=== PATIENT | female | born 2000 | race Caucasian/White ===

== ENCOUNTER → 2022-04-03 14:15 | Outpatient (CLI) | payer BC, SELFPAY ==
--- NOTE | ~2022-04-03 | US_ITS ---
EXAMINATION: US transvaginal DATE: 04/03/2022 14:41 INDICATION: Pelvic pain. TECHNIQUE: Multiple transvaginal sonographic images of the pelvis were obtained. COMPARISON: None. FINDINGS: The uterus measures 6.2 x 3.4 x 3.9 cm. There is no free fluid in the pelvis. The endometrial complex measures 3 mm in thickness. There is a 1.3 cm intramural fibroid. The right ovary measures 3.0 x 2.7 x 2.2 cm. The left ovary measures 2.5 x 2.4 x 1.7 cm. There is normal vascular flow in the ovaries. IMPRESSION: 1. Uterine fibroid. Reviewed, dictated and finalized at location A. E STREAM MANAGER IMPRESSION: 1. Uterine fibroid.
== END ==
PROVIDERS: PCP Nurse Practitioner; Visit Provider Nurse Practitioner
DX: R10.2 Pelvic and perineal pain (principal); D25.9 Leiomyoma of uterus, unspecified
CPT/HCPCS: 76830

== ENCOUNTER 2022-04-28 10:10 | Outpatient (CLI) | payer BC, SELFPAY ==
--- NOTE | ~2022-04-28 | US_ITS ---
US abdomen limited INDICATION: Right upper quadrant abdominal pain. PROCEDURE: Realtime right upper abdominal ultrasound. COMPARISON: No prior studies for comparison. FINDINGS: The pancreas is normal without focal mass or pancreatic ductal dilation. Liver echotexture is normal without focal mass or intrahepatic biliary dilatation. There is normal directional flow i n the portal vein. The gallbladder is normal without stones, gallbladder wall thickening or pericholecystic fluid. Comm on bile duct measures 4 mm. No sonographic Rodríguez's sign. IMPRESSION: 1: Normal limited abdominal ultrasound. Reviewed, dictated and finalized at location A. E BALANCER
== END 2022-04-28 10:11 | disposition home or self-care (01) ==
PROVIDERS: PCP Family Medicine; Visit Provider Family Medicine
DX: R10.11 Right upper quadrant pain (principal)
CPT/HCPCS: 76705

== ENCOUNTER 2022-06-08 09:06 | Outpatient (CLI) | payer BC, SELFPAY ==
--- NOTE | ~2022-06-08 | NM_ITS ---
EXAMINATION: NM hepatobiliary wo pharm DATE: 06/08/2022 11:50 INDICATION: Right upper quadrant abdominal pain. COMPARISON: Ultrasound 04/28/2022 TECHNIQUE: 4.8 mCi Tc-99m mebrofenin (Choletec) was administered intravenously. Scintigraphic images of the abdomen were obtained for one hour. Then, the patient drank 8 oz Ensure, and imaging was cont inued for 60 minutes. FINDINGS: There is normal clearance of radiotracer from the blood pool. There is homogeneous tracer u ptake by the liver. Activity progresses to the bowel and gallbladder. Gallbladder ejection fraction (GBEF) was 47%. Note that with this technique, normal GBEF >= 33%. IMPRESSION: 1. Normal hepatobiliary scintigraphy. Reviewed, dictated and finalized at location A.
== END 2022-06-08 09:07 | disposition home or self-care (01) ==
PROVIDERS: PCP Family Medicine; Visit Provider Physician Assistant
DX: R10.11 Right upper quadrant pain (principal)
CPT/HCPCS: 78226; A9537

== ENCOUNTER → 2023-04-12 14:44 | Outpatient (CLI) | payer BC, SELFPAY ==
--- NOTE | ~2023-04-12 | US_ITS ---
US breast BI limited INDICATION: Palpable breast lumps TECHNIQUE: Dedicated Limited bilateral breast ultrasound COMPARISON: No prior studies for comparison. FINDINGS: The breasts are composed of normal heterogeneous echotexture without focal solid or cystic mass. IMPRESSION: 1: Normal limited bilateral breast ultrasound. BI-RADS CATEGORY 1 - NEGATIVE Reviewed, dictated and finalized at location A. ING SUPERINTENDENT
== END ==
PROVIDERS: PCP Nurse Practitioner; Visit Provider Nurse Practitioner
DX: N63.20 Unspecified lump in the left breast, unspecified quadrant (principal); N63.10 Unspecified lump in the right breast, unspecified quadrant
CPT/HCPCS: 76642

== ENCOUNTER 2024-11-19 20:09 | Emergency (ER) | payer BC, SELFPAY ==
--- OUTSIDE RECORDS SUMMARY | 2013-11-03 10:39 | XMS_ITS | Continuity of Care Document ---
Author Organization [facility] Address [address] [place] [address] [address] [place] [address] Phone Care Team Providers Care Garland Maker Name Role Phone Ki NANCE, OTR/LChristina Unavailable Unavail able Procedures Procedure Date THERAPEUTIC EXERCISES NEUROMUSCULAR RE-ED MANUAL THERAPY FUNC ACTIVITY 15 MIN HOT/COLD PACK THERAPEUTIC EXERCISES NEUROMUSCULAR RE-ED MANUAL THERAPY FUNC ACTIVITY 15 MIN HOT/COLD PACK THERAPEUTIC EXERCISES MANUAL THERAPY FUNC ACTIVITY 15 MIN HOT/COLD PACK THERAPEUTIC EXERCISES MANUAL THERAPY FUNC ACTIVITY 15 MIN HOT/COLD PACK OT EVALUATION THERAPEUTIC EXERCISES MANUAL THERAPY HOT/COLD PACK Advance Directives Directive Yes / No Effective Date File Name No Information Encounters Encounter Description Practice Location Reason(s) For Visit Diagnoses Date Provider Providers Copied on Encounter [facility], [address], [place], [place], [id number], tel:[phone] [place] No Information Ki Vasquez. [address] [place] [address], [address], [place], [place], [facility], . tel:[phone] Referring Provider: Oj Mena, [address], [place], [address]. tel:[phone] [place] [address] [address], [place], [place], [address], tel:[phone] [place] No Information Ki Vasquez. [address] [place] [address], [address], [place], [place], [facility], . tel:[phone] Referring Provider: Oj Mena, [address], [place], [place], [facility]. tel:[phone] [place] [address] [address] [facility] [address], [place], [place], [address], tel:[phone] [place] No Information Ki Vasquez. [address] [place] [address], [address], [place], [place], [facility], . tel:[phone] Referring Provider: Oj Mena, [address], [place], [address]. tel:[phone] [place] [address], [place], [place], [address], tel:[phone] [place] No Information Ki Vasquez. [address] [place] [address], [address], [place], [facility], . tel:[phone] Referring Provider: Oj Mena, [address], [place], [address]. tel:[phone] [place] [address] [facility] [address], [place], [place], [address], tel:[phone] [place] No Information Ki Vasquez. [address] [facility], [address], [place], [address], [place]. tel:[phone] Referring Provider: Precious [address], [place], [address]. tel:[phone] [facility] [place], [address] [place] [address] [address], [place], [id number], [place] tel:[phone] [place] Pain in joint involving hand Ki Vasquez. [address] [facility], [address], [place], [address], [place]. tel:[phone] Referring Provider: Deep[address], [place], [address]. tel:[phone] Family History Family Member Type Diagnosis Age At Onset No Information Payers Payer name Insurance type Covered alliance party ID Rex latif(s) [employer] CI [id number] Social History Type Description Quantity Date Captured Comments Sex Female Smoking Status No Information Chief Complaint And Reason For Visit No Information Reason For Referral Reason For Referral No Information History Of Present Illness Encounter Date Complaint History Of Prese nt Illness No Information Functional Status Date Functional Assessmen t No Information Instructions Date Instruction Additional Infor mation No Information Assessments Type Assessment Date No Information Patient Care Teams Name Effective Dates (start - stop) Status Members No Information
--- NOTE | ~2024-11-19 | CT_ITS ---
EXAMINATION: CT facial bones wo con COMPARISON: None HISTORY: dental pain,?drainage; R epistaxis;wisdom teeth TECHNIQUE: Axial images were obtained without IV contrast. Sagittal, coronal reconstruction images were obtained from the axial views. CT scan performed using dose optimization techniques including the following automated exposure control; adjustment of mA and/or kV; use of iterative reconstruction technique. Automatic exposure control was used to reduce radiation dose. Permanent radiation dose record is archived to PACS. FINDINGS: Nasal bone is intact. Anterior maxillary sinus [place] and zygomatic arches are intact. Temporomandibular joints are intact. Orbital floors and medial and orbits are intact. No significant sinusitis. No retrobulbar hemorrhage or preseptal soft tissue swelling. The visualized brain parenchyma appears unre markable. IMPRESSION: No acute fracture. No acute process. Reviewed, dictated and finalized at location A.
--- OUTSIDE RECORDS SUMMARY | 2024-11-19 20:12 | XMS_ITS | Patient Health Record ---
Author Organization [facility] erma Address [address] [facility] [facility] [address] [place] [address] Support Name Relationship Address Phone Apryl Gu Guarantor Unknown [phone] Allergies No Known Allergies Reason For Referral No Information Problems Problem Type SNOMED Code ICD Code Onset Dates Problem Status W/U Status Risk Notes Problem Atopic dermatitis (03209095) Atopic dermatitis, unspecified (L20.9) Active confirmed Problem Acne (26539541) Acne, unspecified (L70.9) 1 Active confirmed Plan Of Treatment No Information Insurance Providers Payer Name Payer Address Payer Phone Subscriber Number Group Number Insured Name Patient Relationship to Insured Coverage Start Date Coverage End Date DO NOT USE [id number] Margarito Gu 5 [employer] link [address] [place], [place] [id number] Margarito Gu 3 DO NOT USE [place] [id number] Margarito Gu 1 DO NOT USE [id number] 1 Apryl Gu Self - patient is the insured 2
--- OUTSIDE RECORDS SUMMARY | 2024-11-19 20:12 | XMS_ITS | Encounter Summary ---
Author Organization [facility] Address [address] [place] [address] Care Team Providers Care Inspector Shells Name Role Phone Garrett Ding MD Unavailable Enmanuel Calle MD Unavailable [phone] Marely Rios MD Unavailable [phone] Andria Hall MD Unavailable María LucasD Unavailable Unavaila Maggie Abreu RN Unavailable Unavailable Chanda Woodson Unavailable Unavailable Charlotte Anglin SULPHATE TESTER-HOSPITAL SUPERVISOR Unavailable [phone] Tanna Aldridge SULPHATE TESTER-HOSPITAL SUPERVISOR Unavailable [phone] Roro Arreola RN Unavailable Unavailable Kaila Romeo RN Unavailable Unavailable Darlin Weinberg WHEEL PRESSER Unavailable Unavailable Jana Parada RN Unavailable Unavailable Yanelis Menchaca Unavailable Sara Jayne Mcfadden MD Primary Care Provider [phone] Weston Mccullough RN Unavailable Unavailable Encounter Details Date Type Department Care Team (Late st Contact Info) Description 06/16/2023 Lab Requisition [facility] [address] [place] [address] Enmanuel Calle MD [address] [facility] [place] [address] Illness, unspecified Social History Tobacco Use Types Packs/Day Years Used Date Smoking Tobacco: Never Smokeless Tobacco: Never Alcohol Use Standard Drinks/Week Comments Never 0 (1 standard drink = 0.6 oz pur e alcohol) Comments Unknown Sex and Gender Information Value Date Recorded Sex Assigned at Not on file Legal Sex Female 9:01 AM CDT Gender Identity Female 06/14/2023 11:23 AM CDT Sexual Orientation Straight 06/14/2023 11 :23 AM CDT 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 on file Not on file Not on file documented as of this encounter Plan of Treatment Upcoming Encounters Date Type Department Care Team (Late st Contact Info) Description 12/18/2024 10:00 AM CDT Appointment [facility] [address] [place] [address] Tanna Aldridge, SULPHATE TESTER-HOSPITAL SUPERVISOR [address] [place] [address] 03/26/2025 1:00 PM CONTAINERS SALES REPRESENTATIVE Appointment [facility] [address] [place] [phone] documented as of this encounter Procedures Procedure Name Priority Date/Time Associated Diagnosis Comments PATH CONSULT ON REFERRED CASE Routine 06/16/2023 3:41 PM CDT Illness, unspecified documented in this encounter Results * PATH CONSULT ON REFERRED CASE (06/16/2023 3:41 PM CDT) Final Diagnosis Bone marrow, iliac crest, core biopsy, clot section, and aspirate (OSC: [id number]; 06/02/2023): - Markedly hypocellular bone marrow (5% cellular) with trilineage hypoplasia, markedly increased T-cells, and PNH clones identified by flow cytometry (see comment) - Focal iron stores identified 06/16/2023 5:[address] [facility] at 1731 CDT Microscopic Description and Comment Peripheral blood: The CBC provided with the bone marrow report shows a white count of 1400/mcL, hemoglobin 10.4 g/dL, hematocrit 30.6%, MCV 97.8 fL, and a platelet count of 12,000/mcL. The white cell differential shows 56% neutrophils, 40% lymphocytes, 3% monocytes, and 1% monocytes. One nucleated red blood cell is identified per 100 white cells. The absolute neutrophil count is 780/mcL. A peripheral blood smear is not submitted for review. Bone marrow aspirate and core biopsy touch imprints: One bone marrow touch imprint slide contains a small, hypocellular spicule. A 200-cell count differential shows the followin% myeloblasts, 29% more mature myeloid lineage cells, 2% erythroid precursors, 58.5% lymphocytes, 6.5% plasma cells, 0.5% eosinophils, and 2.5% monocytes. Mast cells are mildly increased in number. A significant number of megakaryocytes are not noted. The myeloid lineage is mature without significant dyspoiesis. The erythroid lineage is not present insufficient quantity to adequately assess morphology. The bone marrow aspirate smears are devoid of cellular spicules. Iron stains of the bone marrow aspirate smear are negative but noncontributory due to lack of cellular spicules. Ring sideroblasts are not identified. Bone marrow core biopsy: The core biopsy is adequate for interpretation but shows marked aspiration artifact. The marrow is markedly hypocellular for the patient's age at approximately 5% cellular. The bone marrow cellularity consists primarily of lymphocytes and plasma cells with very rare myeloid and erythroid precursors noted. Scattered mast cells are seen but abnormal mast cell collections are not noted. An exceedingly rare megakaryocyte is identified. Significant lymphoid aggregates, granulomata, or extrinsic tumor cells are not identified. Serous fat atrophy is not appreciated. The clot section contains small cellular spicules which do show erythropoiesis. Immunohistochemical stains with reactive controls are provided for review. CD34, a marker of blasts, highlights fewer than 1% of all cells. CD20, a B-cell marker, highlights approximately 1% of all cells without abnormal clustering noted. CD3, a T-cell marker, highlights at least 70% of total cells. An iron stain of the clot section reveals punctate storage iron. 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 06/16/2023 5:31 PM [facility] Materials Received Received are 28 slide(s) and 1 block labeled [id number] along with a copy of the outside pathology report. The materials originate from [facility], [address] [place] [address]. All original materials are returned to the referring institution, along with a copy of our final report. 06/16/2023 5:31 PM [facility] AP Comment Flow cytometry of th e bone marrow reportedly shows no evidence of a hematolymphoid neoplasm. PNH flow cytometry of the peripheral blood reveals PNH clones in the neutrophils, monocytes, and a minor clone detected in the red cells. Aplastic anemia is favored over paroxysmal nocturnal hemoglobinuria (PNH) as PNH should show erythroid hyperplasia in the marrow. The differential diagnosis includes hypoplastic myelodysplastic neoplasm (myelodysplastic neoplasm with low blasts). Aplastic anemia should not have reticulin fibrosis of the marrow whereas hypoplastic MDS will frequently show some degree of reticulin fibrosis. A reticulin stain was not included for review, and a reticulin stain is not reported in the documentation from the referring institution. Assessing the patient's reticulin status may help differentiate between aplastic anemia and a myelodysplastic neoplasm. 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 Information was not provided by the referring institution with regards to cytogenetic, FISH, or molecular analysis. Correlation with genetic/molecular data is necessary to exclude a myelodysplastic neoplasm or other bone marrow failure syndromes. Overall, the clinical history, morphologic features of the bone marrow, presence of a PNH clone by flow cytometry, increased T-cells in the marrow, and pancytopenia favor aplastic anemia. If clinically suspicious for a T-cell lymphoproliferative disorder, consider T-cell receptor gene rearrangement analysis. 06/16/2023 5:31 PM [facility] Pathologist Location at [facility] [address] 06/16/2023 5:31 PM [facility] Disclaimer The performance characteristics of all immunohistochemical and indirect immunofluorescence stains (if any) cited in this report were determined by the Histopathology Laboratory of [facility]. Some of these tests were developed by our own laboratory and have not been cleared or approved by the US Food and Drug Administration. The FDA does not require this test to go through premarket FDA review. These tests are used for clinical purposes. They should not be regarded as investigational or for research. This laboratory is certified under the Clinical Laboratory Improvement Amendments (CLIA) as qualified to perform high complexity clinical laboratory testing. This case has been personally reviewed and interpreted by the attending (teaching) pathologist. 06/16/2023 5:[address] [facility] Case Report Surgical Pathology Report Case: [id number] Authorizing Provider: Enmanuel Calle MD Collected: 06/16/2023 03:41 PM Ordering Location: [facility] - Received: 06/16/2023 03:42 PM Pathology Lab Pathologist: Olga Lidia Valdez MD Specimen: Slide Consultation 06/16/2023 5:[address] [facility] Embedded Images 06/16/2023 5:[address] [facility] Pathology/Cytolo gy SURGICAL PATHOLOGY CONSULTATION AND REPORT ON REFERRED SLIDES PREPARED ELSEWHERE / Unknown 06/16/2023 3:41 PM CDT 06/16/2023 3:42 PM CDT Enmanuel Calle MD LAB - PATHOLOGY/CYTOLOGY ORD ERABLES Final Result [facility] [address] [phone] documented in this encounter Visit Diagnoses Diagnosis Illness, unspecified documented in this encounter Additional Health Concerns Infection Onset Date Last Indicated Resolved Time CDIFF Under Investigation 08/11/2023 08/11/2023 8:52 PM CDT COVID-19 Under Investigation 04/28/2024 04/28/2024 04/28/2024 3:50 PM CONTAINERS SALES REPRESENTATIVE COVID-19 Under Investigation 06/03/2024 06/03/2024 06/03/2024 1:41 PM CDT documented as of this encounter Care Teams Inspector Shells Relationship Specialty Start Date End Date Jayne Belle MD [address] [phone] PCP - General Family Medicine 06/10/23 Garrett Ding MD [address] [place] [address] Hematology and Oncology 06/07/23 Enmanuel Calle MD [address] [place] [address] Manager Semiconductor/Oncologist Hematology and Oncology 06/07/23 Marely Rios MD [address] [place] [address] Hematology and Oncology 06/07/23 Andria Hall MD [address] [place] [phone] Physician Hematology and Oncology 06/07/23 María Lucas, PharmD 06/07/23 Maggie Porter, RN 06/07/23 WoodsonChanda thomas 06/07/23 Charlotte Anglin APRN-HOSPITAL SUPERVISOR [address] [place] [phone] Nurse Practitioner Nurse Practitioner 06/07/23 Tanna Aldridge APRN-HOSPITAL SUPERVISOR [address] [place] [phone] Nurse Practitioner Nurse Practitioner 06/07/23 Roro Arreola, RN Registered Nurse 06/07/23 10/03/23 Kaila Romeo, RN Coordinator 06/07/23 Darlin Weinberg, CECIL Dye Weigher Helper 06/07/23 Jana Parada, RN Registered Nurse 06/07/23 Yanelis Menchaca 06/07/23 Weston Mccullough, RN Coordinator 10/04/23 documented as of this encounter
--- OUTSIDE RECORDS SUMMARY | 2024-11-19 20:12 | XMS_ITS | Clinical Summary ---
Author Organization [facility] Address [address] [place] [address] Phone Care Team Providers Care Clinical Nurse Occupational Medicine Name Role Phone Chris Maza MD Primary Care Provider Allergies Active Allergy Reactions Criticality Noted Date Comments Latex Rash 06/08/2023 Peanut-Containing Drug Products Other (see Comments) 06/08/2023 Tacrolimus Other (see Comments) 06/08/2023 Medications Norelgestromin- Eth Estradiol (Xulane) 150-35 MCG/24HR PATCH WEEKLY 1 Patch by Transdermal route. 0 Active Active Problems No known active problems Family History Medical History Relation Name Comments Hypertension Father Stroke Mother Diabetes Sister Relation Name Status Comments Brother Alive Father Alive Mother Sister Alive Social History Tobacco Use Types Packs/Day Years Used Date Smoking Tobacco: Never Smokeless Tobacco: Never Alcohol Use Standard Drinks/Week Comments Not Currently 0 (1 standard drink = 0.6 oz pur e alcohol) Sexually Active Control Partners Comments Yes Comments Unknown Sex and Gender Information Value Date Recorded Sex Assigned at Not on file Legal Sex Female 10:13 AM CDT Gender Identity Not on file Sexual Orientation Not on file Last Filed Vital Signs Vital Sign Reading Time Taken Comments Blood Pressure 104/70 06/08/2023 1:34 PM CDT Pulse 61 06/08/2023 1:34 PM CDT Temperature 36.8 C (98.2 F) 06/08/2023 1:34 PM CDT Respiratory Rate - - Oxygen Saturation 99% 06/08/2023 1:34 PM CDT Inhaled Oxygen Concentration - - Weight 55.1 kg (121 lb 6.4 oz) 06/08/2023 1:34 P M CDT Height 160 cm (5' 3) 06/08/2023 1:34 PM CDT Body Mass Index 21.51 06/08/2023 1:34 PM CDT Plan of Treatment Health Maintenance Due Date Last Done Comments Hepatitis C Virus (HCV) Screening 1998 TdaP Immunization 1998 Human Papillomavirus (HPV) Immunization (1 - 3-dose series) 2013 Hepatitis B Immunization (1 of 3 - 19+ 3-dose series) 2017 Pap Smear 06/13/2019 Influenza Immunization (#1) 2024 SARS-COV-2 Immunization ( season) 2024 02/01/2021, 06/18/2020, 05/28/2020 Respiratory Syncytial Virus (RSV) Immunization (Adult) (1 - 1-dose 75+ series) 2073 Meningococcal Immunization (ACWY) Completed 08/25/2015 Pneumococcal Immunization Combined Aged Out No longer eligible b ased on patient's age to complete this topic Rotavirus Immunization Aged Out No lo nger eligible based on patient's age to complete this topic Insurance From [employer] [facility] Care Teams Clinical Nurse Occupational Medicine Relationship Specialty Start Date End Date Chris Maza MD [address] [place] [address] PCP - General Family Medicine 06/01/23
--- OUTSIDE RECORDS SUMMARY | 2024-11-19 20:12 | XMS_ITS | Encounter Summary ---
Author Organization [facility] Address [address] [place] [address] Care Team Providers Care Budder Name Role Phone Garrett Ding MD Unavailable Enmanuel Calle MD Unavailable [phone] Marely Rios MD Unavailable [phone] Andria Hall MD Unavailable María LucasD Unavailable Unavaila Maggie Abreu RN Unavailable Unavailable Chanda Woodson Unavailable Unavailable Charlotte Anglin PATIENT SUPPORT REPRESENTATIVE-CORN POPPER Unavailable [phone] Tanna Aldridge PATIENT SUPPORT REPRESENTATIVE-CORN POPPER Unavailable Kaila Romeo RN Unavailable Unavailable Darlin Weinberg INDUSTRIAL ECOLOGIST Unavailable Unavailable Jana Parada RN Unavailable Unavailable Yanelis Menchaca Unavailable Sara Jayne Mcfadden MD Primary Care Provider [phone] Weston Mccullough RN Unavailable Unavailable Encounter Details Date Type Department Care Team (Late st Contact Info) Description 09/18/2024 Results Follow-Up [facility] [address] [place] [address] Tanna Aldridge APRN-CORN POPPER [address] [place] [address] Social History Tobacco Use Types Packs/Day Years Used Date Smoking Tobacco: Never Smokeless Tobacco: Never Alcohol Use Standard Drinks/Week Comments Never 0 (1 standard drink = 0.6 oz pur e alcohol) AUDIT-C Answer Date Recorded Q1: How often do you have a drink containing alcohol? Never 12/27/2023 Q2: How many drinks containi ng alcohol do you have on a typical day when you are drinking? Patient does not drink Q3: How often do you have si x or more drinks on one occasion? Never 12/27/2023 Overall Financial Resource Strain (CARDIA) Answe r Date Recorded How hard is it for you to pa y for the very basics like food, housing, medical care, and heating? Not hard at all 07/26/2023 PHQ-2 Answer Date Recorded Patient Health Questionnaire-2 Score 0 09/07/2024 [facility] of Occupat ional Health - Occupational Stress Questionnaire Answer Date Recorded Do you feel stress - tense, restless, nervous, or anxious, or unable to sleep at night because your mind is troubled all the time - these days? Not at all 07/26/2023 Hunger Vital Sign Answer Date Recorded Within the past 12 months, y ou worried that your food would run out before you got the money to buy more. Never true 07/26/19 24 Within the past 12 months, t he food you bought just didn't last and you didn't have money to get more. Never true 07/26/2023 PRAPARE - Transportation Answer Date Re corded In the past 12 months, has l ack of transportation kept you from medical appointments or from getting medications? No 07/13 In the past 12 months, has l ack of transportation kept you from meetings, work, or from getting things needed for daily living? No 07/26/2023 Housing Stability Vital Sign Answer Vlad e Recorded In the last 12 months, was t here a time when you were not able to pay the mortgage or rent on time? No 07/26/2023 In the last 12 months, how many places have you lived? 1 07/26/2023 In the last 12 months, was t here a time when you did not have a steady place to sleep or slept in a nursing home (including now)? 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 Answer Date of Assessment Author No 07/26/2023 5:52 PM CDT Minesh Lee RN * Is person blind or have serious difficulty seeing? Answer Date of Assessment Author No 07/26/2023 5:52 PM CDT Minesh Lee RN * Does person have serious difficulty walking/climbing stairs? Answer Date of Assessment Author No 07/26/2023 5:52 PM ZEET Minesh Lee RN * Does person have difficulty dressing/bathing? Answer Date of Assessment Author No 07/26/2023 5:52 PM ZEET Minesh Lee RN * Does person have difficulty doing errands alone? Answer Date of Assessment Author No 07/26/2023 5:52 PM CDT Minesh Lee RN documented as of this encounter Mental Status * Does person have difficulty concentrating/remembering/making decisions? Answer Entry Date Author No 07/26/2023 5:52 PM Minesh Umana RN documented in this encounter Plan of Treatment Upcoming Encounters Date Type Department Care Team (Late st Contact Info) Description 12/18/2024 10:00 AM CDT Appointment [facility] [address] [place] [address] Tanna Aldridge, DEBBI-CORN POPPER [address] [place] [phone] 03/26/2025 1:00 PM NIBBLER OPERATOR Appointment [facility] PFT [address] [place] [phone] documented as of this encounter Visit Diagnoses Not on filedocumented in this encounter Care Teams Budder Relationship Specialty Start Date End Date Jayne Belle MD [address] [phone] PCP - General Family Medicine 06/10/23 Garrett Ding MD [address] [place] [address] Hematology and Oncology 06/07/23 Enmanuel Calle MD [address] [place] [address] Healthcare Corporate Account Director/Oncologist Hematology and Oncology 06/07/23 Marely Rios MD [address] [place] [address] Hematology and Oncology 06/07/23 Andria Hall MD [address] [place] [phone] Physician Hematology and Oncology 06/07/23 María Lucas, PharmD 06/07/23 Maggie Porter, RN 06/07/23 [facility] Charlotte Anglin APRN-CNP [address] [place] [phone] Nurse Practitioner Nurse Practitioner 06/07/23 Tanna Aldridge APRN-CNP [address] [place] [address] Nurse Practitioner Nurse Practitioner 06/07/23 Kaila Romeo, RN Coordinator 06/07/23 Darlin Weinberg, CECIL Datawarehouse Developer 06/07/23 Jana Parada, RN Registered Nurse 06/07/23 Yanelis Menchaca 06/07/23 Weston Mccullough, RN Coordinator 10/04/23 documented as of this encounter
--- OUTSIDE RECORDS SUMMARY | 2024-11-19 20:12 | XMS_ITS | Clinical Summary ---
Author Organization [facility] Address [facility] [place] [address] Care Team Providers Care Manager Licensing Name Role Phone Lasha Orozco MD Unavailable Chris Maza MD Primary Care Provider [phone] Allergies No known active allergies Medications norelgestromin-ethi nyl estradiol (XULANE) 150-35 MCG/24HR packet Place 1 patch onto the skin once a week. On Tuesdays 0 Active ondansetron (ZOFRAN-ODT) 4 MG disintegrating tablet Take 1 tablet (4 mg total) by mouth every 8 (eight) hours as needed. 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 08/17/2008 Immunizations Immunization Administration Dates Next Due PFIZER COVID-19 (ORIGINAL FO RMULATION, PURPLE CAP) mRNA, LNP-S, PF, 30 MCG/0.3 ML DOSE 06/18/2020,05/28/2020 Family History Medical History Relation Comments Stroke Mother Relation Status Comments Brother Alive Father Alive Mother Alive Sister Alive Social History Tobacco Use Types Packs/Day Years Used Date Smoking Tobacco: Never Smokeless Tobacco: Never Tobacco Cessation:Counseling Given: Not Answered Alcohol Use Standard Drinks/Week Comments No 0 (1 standard drink = 0.6 oz pur e alcohol) A[facility] Utilities Answer Date Recorded In the past 12 months has th e [employer], gas, oil, or water eBrevia threatened to shut off services in your home? No 05/31/2023 Humiliation, Afraid, Rape, and Kick questionnair e Answer Date Recorded Within the last year, have y ou been afraid of your partner or ex-partner? No 05/31/2023 Within the last year, have y ou been humiliated or emotionally abused in other ways by your partner or ex-partner? No Within the last year, have y ou been kicked, hit, slapped, or otherwise physically hurt by your partner or ex-partner? No 05/31/2023 Within the last year, have y ou been raped or forced to have any kind of sexual activity by your partner or ex-partner? No 05/31/2023 AUDIT-C Answer Date Recorded Frequency of Alcohol Consumption Never 09/19/2018 Average Number of Drinks Not on file 019 Frequency of Binge Drinking Not on file 10/2018 Overall Financial Resource Strain (CARDIA) Answe r Date Recorded How hard is it for you to pa y for the very basics like food, housing, medical care, and heating? Not hard at all 05/31/2023 Hunger Vital Sign Answer Date Recorded Within the past 12 months, y ou worried that your food would run out before you got the money to buy more. Never true 05/31/19 24 Within the past 12 months, t he food you bought just didn't last and you didn't have money to get more. Never true 05/31/2023 PRAPARE - Transportation Answer Date Re corded In the past 12 months, has l ack of transportation kept you from medical appointments or from getting medications? No 05/13 In the past 12 months, has l ack of transportation kept you from meetings, work, or from getting things needed for daily living? No 05/31/2023 Housing Stability Vital Sign Answer Vlad e Recorded In the last 12 months, was t here a time when you were not able to pay the mortgage or rent on time? No 05/31/2023 In the last 12 months, how many places have you lived? 1 05/31/2023 In the last 12 months, was t here a time when you did not have a steady place to sleep or slept in a group home (including now)? No 05/31/2023 Comments No Sex and Gender Information Value Date Recorded Sex Assigned at Not on file Legal Sex Female 6:19 PM CDT Gender Identity Female 11/24/2021 10:40 AM CDT Sexual Orientation Straight 11/24/2021 10 :40 AM CDT Last Filed Vital Signs Vital Sign Reading Time Taken Comments Blood Pressure 119/73 06/04/2023 7:30 AM CDT Pulse 62 06/03/2023 5:08 AM CDT Temperature 36.6 C (97.8 F) 06/04/2023 4:48 AM CDT Respiratory Rate 18 06/04/2023 4:48 AM CDT Oxygen Saturation 99% 06/04/2023 7:30 AM CDT Inhaled Oxygen Concentration - - Weight 61.2 kg (134 lb 14.7 oz) 06/04/2023 4:48 AM CDT Height 160 cm (5' 3) 05/31/2023 3:45 PM CDT Body Mass Index 23.9 05/31/2023 3:45 PM CDT Plan of Treatment Health Maintenance Due Date Last Done Comments Cervical Cancer Screening Pa p Smear (Age 21 to 29) Every 3 Years 1998 Cervical Cancer Screening 1998 Annual Physical 2001 HPV Vaccines (1 - 3-dose series) 2013 Hepatitis C 2016 DTaP, Tdap and Td Vaccines ( 1 - Tdap) 2017 Hepatitis B Vaccines (1 of 3 - 19+ 3-dose series) 2017 COVID-19 Vaccine (3 - 2024-2 6 season) 2024 06/18/2020, 05/28/2020 Meningococcal Vaccine Completed 08/25/2015 Meningococcal B Vaccine Aged Out No l onger eligible based on patient's age to complete this topic Pneumococcal Vaccine: Pediatrics (0 to 5 Years) and At-Risk Patients (6 to 49 Years) Aged Out No longer eligible b ased on patient's age to complete this topic RSV Immunizations Under 20 Months Aged Out No longer eligible b ased on patient's age to complete this topic Insurance [facility] Advance Directives * Full Code (Latest Code Status on File) Date Activated Date Inactivated Comments 05/31/2023 5:15 PM 06/04/2023 5:10 PM Care Teams Manager Licensing Relationship Specialty Start Date End Date Chris Maza MD [address] [facility] [address] [place] [address] PCP - General FAMILY PRACTICE 06/01/22 Lasha Orozco MD [address] [address] [employer] INTERVENTIONAL CARDIOLOGY 09/16/18
--- OUTSIDE RECORDS SUMMARY | 2024-11-19 20:12 | XMS_ITS | Encounter Summary ---
Author Organization [facility] Address [address] [place] [address] Care Team Providers Care Marketing Performance Analyst Name Role Phone Garrett Ding MD Unavailable Enmanuel Calle MD Unavailable [phone] Marely Rios MD Unavailable [phone] Andria Hall MD Unavailable María LucasD Unavailable Unavaila Maggie Abreu RN Unavailable Unavailable Chanda Woodson Unavailable Unavailable Charlotte Anglin BACTERIOLOGIST FISHERY-SHUTTLE FITTING SUPERVISOR Unavailable [phone] Tanna Aldridge BACTERIOLOGIST FISHERY-SHUTTLE FITTING SUPERVISOR Unavailable [phone] Kaila Romeo RN Unavailable Unavailable Darlin Weinberg LABEL PRINTER Unavailable Unavailable Jana Parada RN Unavailable Unavailable Yanelis Menchaca Unavailable Sara Jayne Mcfadden MD Primary Care Provider [phone] Weston Mccullough RN Unavailable Unavailable Encounter Details Date Type Department Care Team (Late st Contact Info) Description 10/17/2024 Results Follow-Up [facility] B[facility] CLINIC [address] [place] [address] Tanna Aldridge APRN-SHUTTLE FITTING SUPERVISOR [address] [place] [address] Social History Tobacco Use Types [...] Recorded Patient Health Questionnaire-2 Score 0 09/07/2024 [facility] of Occupat ional Health - Occupational Stress [...] place to sleep or slept in a halfway (including now)? No 07/26/2023 Comments Unknown Sex [...] Info) Description 12/18/2024 10:00 AM CDT Appointment [facility] [address] [place] [address] Tanna Aldridge, DEBBI-SHUTTLE FITTING SUPERVISOR [address] [place] [phone] 03/26/2025 1:00 PM STAFF PHYSICAL THERAPIST Appointment [facility] PFT [address] [place] [phone] documented as of this encounter Visit Diagnoses Not on filedocumented in this encounter Care Teams Marketing Performance Analyst Relationship Specialty Start Date End Date Jayne Belle MD [address] [phone] PCP - General Family Medicine 06/10/23 Garrett Ding MD [address] [place] [address] Hematology and Oncology 06/07/23 Enmanuel aClle MD [address] [place] [address] Wad Lubricator/Oncologist Hematology and Oncology 06/07/23 Marely Rios MD [address] [place] [address] Hematology and Oncology 06/07/23 Andria Hall MD [address] [place] [phone] Physician Hematology and Oncology 06/07/23 María Lucas, PharmD 06/07/23 Maggie Porter, RN 06/07/23 [facility]23 Charlotte Anglin APRN-CNP [address] [place] [phone] Nurse Practitioner Nurse Practitioner 06/07/23 Tanna Aldridge APRN-CNP [address] [place] [address] Nurse Practitioner Nurse Practitioner 06/07/23 Kaila Romeo, RN Coordinator 06/07/23 Darlin Weinberg, CECIL Ski Base Trimmer 06/07/23 Jana Parada, RN Registered Nurse 06/07/23 Yanelis Menchaca 06/07/23 Weston Mccullough, RN Coordinator 10/04/23 documented as of this encounter
--- OUTSIDE RECORDS SUMMARY | 2024-11-19 20:12 | XMS_ITS | Clinical Summary ---
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 Family history of cardiomyopathy 08/17/2008 Supraventricular tachycardia 08/17/2008 Family History Medical History Relation Name Comments Cardiomyopathy Mother Family histor y of cardiomyopathy - (Added by TW Conv) Relation Name Status Comments Mother Social History Tobacco Use Types Packs/Day Years Used Date Smoking Tobacco: Never Smokeless Tobacco: Never Personal Safety Answer Date Recorded Getting School Help Needed Not on file 04/30 Comments Unknown Sex and Gender Information Value Date Recorded Sex Assigned at Not on file Legal Sex Female 4:07 AM DROP MAN Gender Identity Not on file Sexual Orientation Not on file Obstetrics History Last Filed Vital Signs Vital Sign Reading Time Taken Comments Blood Pressure 123/65 11/26/2018 8:51 AM CDT Pulse 70 11/26/2018 8:51 AM CDT Temperature 36.7 C (98 F) 06/20/2020 12:52 PM CDT Respiratory Rate - - Oxygen Saturation 98% 11/26/2018 8:51 AM CDT Inhaled Oxygen Concentration - - Weight 63.5 kg (140 lb) 06/20/2020 12:52 PM CDT Height 160 cm (5' 3) 06/20/2020 12:52 PM CDT Body Mass Index 24.8 06/20/2020 12:52 PM CDT Plan of Treatment Health Maintenance Due Date Last Done Comments Cervical Cancer Screening 1998 Depression Screening 1998 Hepatitis C Screening 1998 DTaP/Tdap/Td Vaccine (1 - Tdap) 2009 Varicella Vaccines (1 of 2 - 13+ 2-dose series) 06/13/2011 HPV Vaccines (1 - 3-dose series) 2013 Hepatitis B Screening 2016 Regular Well Visit/Exam 18-64 2016 Covid-19 Vaccine (3 - 2023-2 5 season) 2023 06/18/2020, 05/28/2020 Influenza Vaccine (#1) 2024 Pneumococcal vaccine <65 Aged Out No longer eligible based on patient's age to complete this topic Insurance [employer] [place] [employer] [place] Care Teams Laboratory Sampler Relationship Specialty Start Date End Date Solomon Kearney MD [address] [place], [place] [phone] PCP - General 11/26/18
--- OUTSIDE RECORDS SUMMARY | 2024-11-19 20:12 | XMS_ITS | Encounter Summary ---
Author Organization [facility] Address [address] [facility] [place] [address] Care Team Providers Care Patient Day Coordinator Name Role Phone Garrett Ding MD Unavailable Enmanuel Calle MD Unavailable [phone] Marely Rios MD Unavailable [phone] Andria Hall MD Unavailable María LucasD Unavailable Unavaila Maggie Abreu RN Unavailable Unavailable Chanda Woodson Unavailable Unavailable Charlotte Anglin DANCE INSTRUCTOR-TRENCH PIPE LAYER HELPER Unavailable [phone] Tanna Aldridge DANCE INSTRUCTOR-TRENCH PIPE LAYER HELPER Unavailable [phone] Kaila Romeo RN Unavailable Unavailable Darlin Weinberg MOTION PICTURE CAMERA OPERATOR Unavailable Unavailable Jana Parada RN Unavailable Unavailable Yanelis Menchaca Unavailable Sara Jayne Mcfadden MD Primary Care Provider [phone] Weston Mccullough RN Unavailable Unavailable Encounter Details Date Type Department Care Team (Late st Contact Info) Description 10/16/2023 Telephone [facility] CL[facility] [address] [place] [address] Nicole Hammer, ANMOL Social History Tobacco Use Types Packs/Day Years Used Date Smoking Tobacco: Never Smokeless Tobacco: Never Alcohol Use Standard Drinks/Week Comments Never 0 (1 standard drink = 0.6 oz pur e alcohol) AUDIT-C Answer Date Recorded Q1: How often do you have a drink containing alcohol? Never 07/26/2023 Q2: How many drinks containi ng alcohol do you have on a typical day when you are drinking? Patient does not drink Q3: How often do you have si x or more drinks on one occasion? Never 07/26/2023 Overall Financial Resource Strain (CARDIA) Answe r Date Recorded How hard is it for you to pa y for the very basics like food, housing, medical care, and heating? Not hard at all 07/26/2023 [facility] of Occupat ional Health - Occupational Stress [...] place to sleep or slept in a assisted (including now)? No 07/26/2023 Comments Unknown Sex [...] 07/26/2023 5:52 PM ZEET Minesh Lee RN documented as of this encounter Mental Status * Does person have difficulty concentrating/remembering/making decisions? Answer Entry Date Author No 07/26/2023 5:52 PM ZEET Minesh Lee RN documented in this encounter Miscellaneous Notes * Telephone Encounter - Nicole Hammer RN - 10/16/2023 12:09 PM CDT Called Apryl to remind him/her about bone marrow biopsy scheduled for Wednesday at 1100. No answer, left message. I reminded her to have a light breakfast and then nothing to eat or drink until after theprocedure with the exception of pills with sips of water. 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 Informed to call with any questions or concerns. documented in this encounter Plan of Treatment Upcoming Encounters Date Type Department Care Team (Late st Contact Info) Description 12/18/2024 10:00 AM CDT Appointment [facility] [address] [place] [address] Tanna Aldridge, DANCE INSTRUCTOR-TRENCH PIPE LAYER HELPER [address] [place] [phone] 03/26/2025 1:00 PM PHARMACEUTICAL WORKER Appointment [facility] PFT [address] [place] [address] documented as of this encounter Visit Diagnoses Not on filedocumented in this encounter Additional Health Concerns Infection Onset Date Last Indicated Resolved Time COVID-19 Under Investigation 04/28/2024 04/28/2024 04/28/2024 3:50 PM PHARMACEUTICAL WORKER COVID-19 Under Investigation 06/03/2024 06/03/2024 06/03/2024 1:41 PM CDT documented as of this encounter Care Teams Patient Day Coordinator Relationship Specialty Start Date End Date Jayne Belle MD [address] [place] [phone] PCP - General Family Medicine 06/10/23 Garrett Ding MD [address] [place] [address] Hematology and Oncology 06/07/23 Enmanuel Calle MD [facility] [place] [address] Information Systems Auditor/Oncologist Hematology and Oncology 06/07/23 Marely Rios MD [facility] [place] [address] Hematology and Oncology 06/07/23 Andria Hall MD [address] [place] [phone] Physician Hematology and Oncology 06/07/23 María Lucas, PharmD 06/07/23 Maggie Porter, RN 06/07/23 Chanda Woodson 06/07/23 Charlotte Anglin, DANCE INSTRUCTOR-TRENCH PIPE LAYER HELPER [facility] [place] [phone] Nurse Practitioner Nurse Practitioner 06/07/23 Tanna Aldridge APRN-ANKUR [address] [place] [address] Nurse Practitioner Nurse Practitioner 06/07/23 Kaila Romeo, RN Coordinator 06/07/23 Darlin Weinberg MSW Medical Director 06/07/23 Jana Parada, RN Registered Nurse 06/07/23 Yanelis Menchaca 06/07/23 Weston Mccullough, RN Coordinator 10/04/23 documented as of this encounter
[2024-11-19 20:28] VITALS: BP 120/69; PULSE 80; RESP 18; TEMP 36.7; O2SAT 100
[2024-11-19 21:20] VITALS: BP 126/86; PULSE 79; RESP 18; O2SAT 100
[2024-11-19 21:34] LABS: Hematocrit 39.7 % (37.0-47.0); Hemoglobin 13.7 g/dL (12.0-15.0); Immature Granulocyte Percent A 0.3 % (0-0.5); Lymphocytes Absolute Auto 1.55 K/mm3 (0.9-3.2); Mean Corpuscular HGB Conc 34.5 g/dl (32-36); Mean Corpuscular Hemoglobin 33.3 pg (26-34); Mean Corpuscular Volume 96.6 fl (80-100); Nucleated Red Blood Cells Absolute Auto 0.000 K/mm3 (0.0-0.012); Nucleated Red Blood Cells Perc 0.0 % (0.0-0.2); Platelet Count Result 212 k/mm3 (150-375); Red Blood Count 4.11 M/mm3 (4.2-5.4); White Blood Count 7.2 K/mm3 (4.5-10.0)
--- NOTE | 2024-11-19 21:43 | ED.DENTAL ---
HPI - Dental/Oral General Chief complaint: Dental/Oral Stated complaint: R facial swelling post widsom teeth extraction Time Seen by Provider: 11/19/24 21:15 Source: patient, RN notes reviewed and other Mode of arrival: ambulatory Limitations: no limitations History of Present Illness HPI Narrative: Patient had 4 wisdom teeth extracted through [facility] in [place] on 11/16/24. No after hours emergency line to call. Has had persistent reight lower gum pain and swelling and feels like having right facial swelling. Currently scheduled for follow up with oral surgeon/dentist on . Has seen drainage in mouth. No fevers or chills (temp 98.7 at home). Having difficulty swallowing. No sore throat or shortness of breath. Concerned for infection. Didn't start to take antibiotic immediately after surgery due to pain and swelling but started yesterday evening. Now s/p 3 doses of amoxicillin. Taking Tylenol as well as Motrin/Advil, no relief. Hard to fully open mouth. Had a nosebleed on the right earlier, having sinus pain. Last dose Tylenol 6pm. Patient states she was told to start the antibiotics immediately but she felt that she was unable to given the degree of pain and swelling. She is received 3 doses of this medication thus far. She believes it is just amoxicillin, not Augmentin and it is the pink liquid formulation. Related Data Home Medications ?Medication ?Instructions ?Recorded ?Confirmed ?Last Taken ?Type norelgestromin 150 mcg-e.estradiol 1 patch transdermal WEEKLY 04/14/22 04/14/22 Unknown History 35 mcg/24 hr weekly transderm patch (Xulanvickie) Allergies Allergy/AdvReac Type Severity Reaction Status Date / Time latex Allergy Mild Unknown Verified 11/19/24 20:30 peanut Allergy Mild Unknown Verified 11/19/24 20:30 tree nuts Allergy Mild Unknown Uncoded 04/14/22 14:28 [facility] Past Medical History Medical History Aplastic anemia Paroxysmal nocturnal hemoglobinuria Danon disease Surgical History Surgical History Acra teeth extracted Family History Family History Father Hypertension Mother Cerebrovascular accident Hypertrophic cardiomyopathy Sibling Diabetes mellitus type I Hypertrophic cardiomyopathy Social History Social History Smoking status: Never smoker Alcohol intake: never Substance use: never Living arrangements: with family Occupation/Education: occupation Gender identity (if verbalized by the patient): Female Sexual Orientation (if Verbalized by the Patient): Straight or Heterosexual Spiritual care concerns: No Exam Narrative: GENERAL: Well-appearing, well-nourished. Mild facial edema, not profound and generally symmetric HEAD: Normocephalic, atraumatic. EYES: Non injected, non icteric ENT: Nares clear, no rhinorrhea. No nasal polyps. Hyperemic but no matt epistaxis or evidence of dried blood. Gross auditory acuity intact. Initially has difficulty opening mouth 2 finger widths so can not see posterior oropharynx. Tongue normal, not edematous. No swelling under tongue. Very mild buccal swelling on the right, no induration bilaterally. On repeat assessment patient can open mouth more, no trismus. Small area of white drainage in sockets (previously where teeth # 31 and 32). NECK: Supple. No meningismus. General lymphadenopathy CHEST: Speaking in full sentences. No respiratory distress. HEART: Regular rate and rhythm. . ABDOMEN: Soft, nondistended. EXTREMITIES: Normal range of motion. No lower extremity edema. SKIN: Warm, dry, no rash. NEURO: No focal deficits. Alert and oriented. Answering questions. Following commands. Normal speech without aphasia or dysarthria. Tongue protrudes midline w/o deviation. PSYCH: Congruent mood and affect. Course Vital Signs Vital signs: Vital Signs Temperature 98.0 F 11/19/24 20:28 Pulse Rate 80 11/19/24 20:28 Respiratory Rate 18 11/19/24 20:28 Blood Pressure 120/69 11/19/24 20:28 Pulse Oximetry 100 11/19/24 20:28 Oxygen Delivery Room Air 11/19/24 20:28 Temperature 98.0 F 11/19/24 20:28 Pulse Rate 79 11/19/24 21:20 Respiratory Rate 18 11/19/24 21:20 Blood Pressure 126/86 11/19/24 21:20 Pulse Oximetry 100 11/19/24 21:20 Oxygen Delivery Room Air 11/19/24 20:28 MDM - Dental/Oral MDM Narrative Medical decision making narrative: Patient presents with right lower gum pain and concern for facial swelling and infection. S/p wisdom teeth (x4) extraction 11/16/24. Taking Tylenol and Advil. Did not start taking antibiotics after surgery as advised, started yesterday evening. Total 3 doses thus far. In the ED she is afebrile with VS WNL. CBC without leukocytosis . Patient tells the nurse when IV to be placed, Oh, I think I might be allergic to contrast. No allergy listed, has not received CT with contrast per review of our EMR but at this time felt to be less of an allergy and more of a possible aversion to getting an IV placed as she had pain with getting stuck for labs and is not wanting IV morphine either. Will defer adding it to allergy list at this time, non contrast CT ordered instead. Attempted to order PO [place] but patient tells RN she can't swallow pill. Patient given IM toradol after which able to perform better physical exam. There does appear to be infection. CRP and ESR elevated, nonspecific markers of infection versus inflammation. Patient already feeling better. Advised continuing antibiotics but strict ED return precautions which might truly warrant failure of outpatient therapy. Advised f/u with dental clinic. Provided referral contact info for a PCP if needed. Provided Rx for oxy for breakthrough pain. Otherwise stable for DC. Differential Diagnosis Differential diagnosis: Likely dental abscess and other (infection; dry socket; post operative pain) Lab Data Attestation: I reviewed the patient's lab results. Lab results narrative: Chemistry without abnormalities, normal renal function. 11/19/24 21:26 11/19/24 21:26 Labs: Lab Results 11/19/24 Range/Units 21:26 WBC 7.2 (4.5-10.0) K/mm3 RBC 4.11 L (4.2-5.4) M/mm3 Hgb 13.7 (12.0-15.0) g/dL Hct 39.7 (37.0-47.0) % MCV 96.6 (80-100) fl MCH 33.3 (26-34) pg MCHC 34.5 (32-36) g/dl RDW 12.1 (11.5-14.5) % Plt Count 212 (150-375) k/mm3 MPV 9.4 (7.4-10.4) fl Immature Gran % (Auto) 0.3 (0-0.5) % Neut % (Auto) 67.7 (45.5-73.1) % Lymph % (Auto) 21.5 (18.3-44.2) % [place] % (Auto) 8.4 (2.6-8.5) % Eos % (Auto) 1.8 (0-4.4) % Baso % (Auto) 0.3 (0.2-1.2) % Lymph # (Auto) 1.55 (0.9-3.2) K/mm3 [place] # (Auto) 0.6 (0.1-0.6) K/mm3 Eos # (Auto) 0.1 (0-0.3) K/mm3 Baso # (Auto) 0.0 (0.0-0.1) K/mm3 Abs Immat Gran (auto) 0.02 (0.00-0.031) K/mm3 Absolute Neuts (auto) 4.9 (1.3-6.7) K/mm3 Absolute Nucleated RBC 0.000 (0.0-0.012) K/mm3 Nucleated RBC % 0.0 (0.0-0.2) % ESR 24 H (0-20) mm/hr Sodium 137 (137-145) mmol/L Potassium 4.0 (3.4-5.0) mmol/L Chloride 103 (98-107) mmol/L Carbon Dioxide 25 (22-30) mmol/L Anion Gap 9 (4-12) mmol/L BUN 5 L (7-17) mg/dL Creatinine 0.69 L (0.7-1.0) mg/dL Estim Creat Clear Calc 88 ml/min Estimated GFR > 60 (59 - ) Glucose 88 (65-110) mg/dL Calcium 9.3 (8.4-10.2) mg/dL Total Bilirubin 0.8 (0.2-1.3) mg/dL AST 35 (14-36) U/L ALT 13 (6-35) U/L Alkaline Phosphatase 72 (38-126) U/L C-Reactive Protein 12.5 H (<1.0) mg/dL Total Protein 7.4 (6.3-8.2) g/dL Albumin 4.2 (3.5-5.1) g/dL Imaging Data Radiologist's impression: CT Facial Stat Rad: The mandible is intact. Intact maxillary alveolus. No orbital floor fracture. The intraorbital contents are grossly unremarkable. Intact nasal bone, nasal septum, and maxillary spine. The zygomatic arches and pterygoid processes are intact Impression: No facial bone fracture Discharge Plan Discharge Clinical Impression: S/P wisdom tooth extraction, Pain, dental, CRP elevated, ESR raised, Post operative infected tooth socket Patient Disposition: Home Condition: Stable Instructions: Antibiotic Form, Tooth Extraction (DC) Additional Instructions: Acetaminophen/Tylenol (maximum 3000 mg per day) is safe to take with NSAIDs (ibuprofen/Motrin) for pain relief. For breakthrough pain, a short course of opiate/narcotic medication has been prescribed. Continue taking the antibiotic you were prescribed. Follow-up with your oral surgeon. Call tomorrow to see if they would like to move up your follow-up appointment given the concern for infection. Return to the emergency department with any new or worsening symptoms such as inability to open mouth at all, difficulty breathing, worsening difficulty/pain with swallowing, fever >100.4F, etc == If you are in need of a primary care physician, the name of a doctor is listed below. Patient Language: Tongan Prescriptions: New oxycodone 5 mg tablet 5 mg PO Q8H PRN (Reason: pain) Qty: 7 0RF No Action Xulane 150-35 mcg/24 hr patch weekly 1 patch transdermal WEEKLY Rx Instructions: apply once weekly for 3 weeks of a 4-week cycle Follow-up/Referrals: Delia Alejandra [Other] PHYSICIAN NOT ON STAFF,NONSTAFF [Primary Care Provider] Lew Cruz MD [Physician, Family Practice] Stand Alone Forms: Work/School Release IP Time of Disposition: 23:05
[2024-11-19 21:52] LABS: Alanine Aminotransferase 13 U/L (6-35); Albumin Level 4.2 g/dL (3.5-5.1); Alkaline Phosphatase 72 U/L (38-126); Anion Gap 9 mmol/L (4-12); Aspartate Amino Transferase 35 U/L (14-36); Bilirubin,Total 0.8 mg/dL (0.2-1.3); Blood Urea Nitrogen 5 mg/dL (7-17); Calcium 9.3 mg/dL (8.4-10.2); Carbon Dioxide 25 mmol/L (22-30); Chloride 103 mmol/L (98-107); Estimated CRCL calculation 88 ml/min; Estimated Glomerular Filt Rate > 60; Glucose 88 mg/dL (65-110); Potassium 4.0 mmol/L (3.4-5.0); Sodium 137 mmol/L (137-145); Total Protein 7.4 g/dL (6.3-8.2)
--- NOTE | 2024-11-19 22:01 | PC.NURSE ---
Pt states she believes she has an allergy to contrast. Pt allergies updated in chart. Pt states she is not really wanting an IV. MD White notified. Pt states she cannot swallow any pills at this time.
[2024-11-19 22:03] LABS: CRP 12.5 mg/dL (<1.0)
[2024-11-19] MEDS: KETOROLAC 30 MG/ML VIAL (*BKC) 15 MG IM (22:06)
== END 2024-11-19 23:13 | disposition home or self-care (01) ==
PROVIDERS: Emergency Medicine; Emergency Provider Student in an Organized Health Care Education/Training Program
DX: K08.89 Other specified disorders of teeth and supporting structures (principal); K91.89 Other postprocedural complications and disorders of digestive system; R70.0 Elevated erythrocyte sedimentation rate; R79.82 Elevated C-reactive protein (CRP); D61.9 Aplastic anemia, unspecified
CPT/HCPCS: 36415; 70486; 80053; 85025; 85652; 86140; 96372; 99284; J1885